=== PATIENT | male | born 1975 | race Caucasian/White ===

== ENCOUNTER 2018-02-04 14:45 | Emergency (ER) | payer OTHER ==
[2018-02-04] MEDS ORDERED: NS 500 ML IV ONE (15:06)
--- NOTE | 2018-02-04 16:31 | EDPHY ---
H & P Time Seen by Provider: 02/04/18 15:01 HPI/ROS: HPI Chest tightness, shortness of breath. 42-year-old male by private vehicle. This patient reports having intermittent spontaneously occurring chest tightness with associated shortness of breath for the last 3-4 weeks. He denies any association with strenuous activity or exercise. He reports that these episodes come on for no apparent reason. He states that he is prone to anxiety and has had a lot of stress in his life. No cardiac risk factors. He does not smoke. No history of hyperlipidemia, diabetes or hypertension. No significant family history. He is not obese. He denies any symptoms at the time of my evaluation. Reports that he told his about these symptoms earlier today and she had him come to the emergency department to be evaluated. ROS: Constitutional: No fever, no chills. No weakness. Respiratory: No cough. As above. Cardiac: As above, no palpitations. Gastrointestinal: No abdominal pain, no vomiting, no diarrhea. Genitourinary: No hematuria. No dysuria or increased frequency with urination. Musculoskeletal: No back pain. No neck pain. No myalgias or arthralgias. Skin: No rashes. Neurological: No headache. No focal weakness or altered sensation. Past medical history: Denies any past medical history. No prescription medications. Social history: Nonsmoker. . Here by himself currently. Denies alcohol or drugs. Physical Exam: General Appearance: Alert, no distress. This patient is responding to questions appropriately and in full sentences. This patient appears well- hydrated and well-nourished. Eyes: Pupils equal and round no pallor or injection. No lid edema, erythema or injection. Respiratory: There are no retractions, lungs are clear to auscultation with good air movement bilaterally. Cardiovascular: Regular rate and rhythm. No murmur. Gastrointestinal: Abdomen is soft and nontender, no masses, bowel sounds normal. No focal tenderness at McBurney's point. No Denis sign. Neurological: Motor sensory function is grossly intact. Cranial nerves are normal. Gait is normal. Skin: Warm and dry, no rashes. Musculoskeletal: Neck is supple and nontender. Extremities are symmetrical. All joints range without pain or impingement. Psychiatric: No agitation. No depression. Database: EKG: EKG time is 2:59 p.m.; EKG shows a narrow complex normal sinus rhythm with a ventricular rate of 72. The MS, QRS, QT intervals are within normal limits. There are no ST-T wave changes indicative of ischemic or injury pattern. No evidence of right heart strain. Interpreted by me. Imaging: Chest x-ray PA and lateral; the cardiac mediastinal silhouette is unremarkable. No evidence of infiltrate or pneumothorax. No acute cardiopulmonary disease process noted. Interpreted by me. Procedures: Emergency department course: Triage vital signs reviewed and are normal. The patient is asymptomatic here in the emergency department. He has a heart score of 0-1 which makes him low risk for major adverse cardiac event. He does not want to be admitted for further testing or observation at this time. The patient competently engages in shared decision making. They demonstrate capacitance to make decisions. Plan will be to have him follow up with [facility] for re-evaluation and provocative testing within the next 3 days. He has been instructed not to engage in any strenuous activity until cleared by Cardiology. He feels comfortable going home. He understands his follow-up. Return to emergency department precautions thoroughly reviewed. All of his questions were answered. He was discharged from the emergency department in good condition. Differential Diagnosis: The differential diagnosis on this patient includes but is not limited to anxiety react, noncardiac chest pain. Acute coronary syndrome, pulmonary embolism, myocarditis, pericarditis, pneumothorax, aortic dissection unlikely. This represents a partial list of diagnoses considered. These considerations are based on history, physical exam, past history, reassessment and diagnostic testing. Smoking Status: Never smoked Constitutional: Initial Vital Signs Temperature (C) 36.2 C 02/04/18 14:49 Heart Rate 74 02/04/18 14:49 Respiratory Rate 16 02/04/18 14:49 Blood Pressure 113/74 02/04/18 14:49 O2 Sat (%) 96 02/04/18 14:49 O2 Delivery Mode Room Air Allergies/Adverse Reactions: No Known Allergies Allergy (Unverified 02/04/18 14:54) Home Medications: Medication Instructions Recorded NK [No Known Home Meds] 02/04/18 Medical Decision Making - Diagnostics Imaging Results: Imaging Impressions Chest X-Ray 02/04/18 15:06 Impression: No acute pulmonary disease. - Data Points Laboratory Results: 02/04/18 02/04/18 15:26 15:24 POC Sodium 140 mEq/L mEq/L (135-145) POC Potassium 3.5 mEq/L mEq/L (3.3-5.0) POC Chloride 107.0 mEq/L mEq/L (97-110) POC Total CO2 24 mEq/L mEq/L (22-31) POC BUN 9 mg/dL mg/dL (7-23) POC Creatinine 0.9 mg/dL mg/dL (0.7-1.3) POC Glucose 106 mg/dL H mg/dL (70-100) POC Calcium 9.7 mg/dL mg/dL (8.5-10.4) POC Troponin I 0.00 ng/mL ng/mL (0.00-0.08) Point of Care Test Results: Chemistry 02/04/18 02/04/18 15:26 15:24 POC Sodium 140 mEq/L mEq/L (135-145) POC Potassium 3.5 mEq/L mEq/L (3.3-5.0) POC Chloride 107.0 mEq/L mEq/L (97-110) POC Total CO2 24 mEq/L mEq/L (22-31) POC BUN 9 mg/dL mg/dL (7-23) POC Creatinine 0.9 mg/dL mg/dL (0.7-1.3) POC Glucose 106 mg/dL H mg/dL (70-100) POC Calcium 9.7 mg/dL mg/dL (8.5-10.4) POC Troponin I 0.00 ng/mL ng/mL (0.00-0.08) D-Dimer D-Dimer Collection Date 02/04/18 D-Dimer Collection Time 15:21 D-Dimer (ng/ml) less than 100 Departure - Departure Disposition: Home, Routine, Self-Care Clinical Impression: Chest discomfort, Dyspnea Condition: Good Instructions: Chest Pain (ED) Additional Instructions: Read and follow provided instructions. Call the office is of [facility], our cardiology group, Monday morning at 9: 00 a.m. For follow-up appointment time. Explained this is for an emergency department follow-up for your chest discomfort. You should be seen by them within the next 3 days. No strenuous activity until you have been cleared by Cardiology. Return to the emergency department for worsening symptoms, worsening chest pain , shortness of breath or other serious concerns. Referrals: [facility] [Provider Group] - As per Instructions
[2018-02-04 16:45] VITALS: BP 98/54
[2018-02-04 17:39] LABS: PLATELET COUNT 285 10^3/uL (150-400)
--- NOTE | 2018-02-05 21:00 | CPEKG ---
Test Reason : OPEN Blood Pressure : / mmHG Vent. Rate : 072 BPM Atrial Rate : 071 BPM P-R Int : 157 ms QRS Dur : 087 ms QT Int : 390 ms P-R-T Axes : 026 029 022 degrees QTc Int : 427 ms Sinus rhythm Confirmed by Sammy Escoto ([id number]) on 02/05/2018 8:59:53 PM Referred By: Confirmed By:Sammy Escoto
== END 2018-02-04 17:00 | disposition home or self-care (01) ==
LOC: CED 14:45
DX: R07.89 Other chest pain (principal); R06.00 Dyspnea, unspecified; E86.9 Volume depletion, unspecified
CPT/HCPCS: 71046-PO; 80048-PO; 84484-PO

== ENCOUNTER → 2018-03-07 | Outpatient (CLI) | payer OTHER ==
[~2018-03-07] MED LIST: IOPAMIDOL (ISOVUE 370) 100 ML BTL IV ONE
== END ==
LOC: FIMAGING 07:50
PROVIDERS: ATTEND Internal Medicine Cardiovascular Disease
DX: R07.9 Chest pain, unspecified (principal)
CPT/HCPCS: Q9967